=== PATIENT | female | born 1975 | race Caucasian/White ===

== ENCOUNTER 2018-12-18 05:27 | Emergency (ER) | payer SELFPAY ==
[~2018-12-18] VITALS: Ht 167.6 cm; Wt 90.9 kg
[2018-12-18] MEDS ORDERED: TRAZ150 PO (06:54)
[2018-12-18] MEDS ORDERED: BUSP15 PO (06:54)
[2018-12-18] MEDS ORDERED: ESCI20TA PO (06:54)
[2018-12-18] MEDS ORDERED: HYDR50CA10 PO (06:54)
[2018-12-18] MEDS ORDERED: MIRT30 PO (06:54)
[2018-12-18] MEDS ORDERED: FURO-152 PO (06:56)
[2018-12-18] MEDS ORDERED: KETOROLAC TROMETHAMINE 60 MG/2 ML VIAL IM ONE (10:30)
[2018-12-18] MEDS ORDERED: AZITHROMYCIN 250 MG TABLET PO ONE (12:00)
[2018-12-18] MEDS ORDERED: CefTRIAXone SODIUM 1 GM/VIAL IM ONE (12:00)
[2018-12-18] MEDS ORDERED: LIDOCAINE/PF 1% 2 ML VIAL ONE (12:07)
[2018-12-18 12:39] VITALS: BP 124/82
== END 2018-12-18 12:46 | disposition home or self-care (01) ==
LOC: EMS 05:27
DX: S90.511A Abrasion, right ankle, initial encounter (principal); M26.621 Arthralgia of right temporomandibular joint; E05.90 Thyrotoxicosis, unspecified without thyrotoxic crisis or storm; I10 Essential (primary) hypertension; F43.10 Post-traumatic stress disorder, unspecified; F41.9 Anxiety disorder, unspecified; F32.9 Major depressive disorder, single episode, unspecified; Z79.899 Other long term (current) drug therapy; Z85.850 Personal history of malignant neoplasm of thyroid; Z88.2 Allergy status to sulfonamides; Y08.89XA Assault by other specified means, initial encounter; Y93.89 Activity, other specified; Y92.89 Other specified places as the place of occurrence of the external cause; Y99.8 Other external cause status
CPT/HCPCS: 36415; 70450; 70486; 80074; 84702; 87536; 96372; 99284; G0480; J0696; J1885; J3490

== ENCOUNTER 2021-07-08 13:19 | Emergency (ER) | payer MEDICAID ==
[~2021-07-08] VITALS: Ht 167.6 cm; Wt 65.0 kg
[~2021-07-08 13:19] MED LIST: BUSP15 PO; ESCI20TA87 PO; FURO-152 PO; HYDR50CA9 PO; MIRT30 PO; TRAZ150T80 PO
[2021-07-08 14:08] VITALS: BP 156/101
== END 2021-07-08 14:55 | disposition home or self-care (01) ==
LOC: EMS 13:24
DX: K94.23 Gastrostomy malfunction (principal); C76.0 Malignant neoplasm of head, face and neck
CPT/HCPCS: 43762; 99284; Z7502